=== PATIENT | male | born 1970 | race Caucasian/White ===

== ENCOUNTER 2024-10-05 05:34 | Emergency (ER) | payer OTHER ==
[~2024-10-05] VITALS: Ht 190.5 cm; Wt 100.7 kg
[~2024-10-05 05:34] MED LIST: HYDROCODON-ACE1 EA10 PO
[2024-10-05] MEDS ORDERED: IBLOOD GLUCOSE TEST STRIP 1 EA TEST XX ONE (05:45)
[2024-10-05 05:55] LABS: BASOPHILS 1.2 % (0-2); EOSINOPHILS 2.9 % (0-6); HEMATOCRIT 45.9 % (35.0-50.0); HEMOGLOBIN 16.1 g/dL (12.0-18.0); LYMPHOCYTES 28.5 % (24-44); MCH 30.6 (27-36); MCHC 35.1 g/dl (30-36); MCV 87.4 fl (81-99); NEUTROPHILS 60.4 % (39-80); PLATELET COUNT 234 K/uL (140-440); RBC 5.25 M/ul (4.3-5.7); RDW 13.2 (10.5-15.0)
[2024-10-05 06:12] LABS: ALBUMIN 3.5 g/dL (3.4-5.0); ALBUMIN/GLOBULIN RATIO 0.88 (1.1-2.4); ALKALINE PHOSPHATASE 61 U/L (46-116); ALT (SGPT) 38 U/L (14-59); ANION GAP 11.9 (7-21); AST (SGOT) 15 U/L (15-37); BILIRUBIN, TOTAL 0.5 ng/dL (0.2-1.0); CALCIUM 9.1 mg/dL (8.5-10.1); CARBON DIOXIDE 27 mmol/L (21-32); CHLORIDE 104 mmol/L (98-107); CREATININE, SERUM 1.03 mg/dL (0.70-1.30); GLOMERULAR FILTRATION RATE,EST 86 mL/min (>60); POTASSIUM 3.9 mmol/L (3.5-5.1); PROTEIN, TOTAL 7.5 g/dL (6.4-8.2); UREA NITROGEN 17 mg/dL (7-18)
[2024-10-05 06:22] LABS: PARTIAL THROMBOPLASTIN TIME 31.6 Sec (22.9-41.3)
[2024-10-05 06:35] LABS: INR 0.93 (0.80-1.30); PROTIME 12.4 Sec (11.2-14.2)
[2024-10-05] MEDS ORDERED: ACYCLOVIR800 MG PO (06:53)
[2024-10-05] MEDS ORDERED: methylPREDNISolone 4 MG HOME.PACK PO ONE (07:00)
[2024-10-05 07:10] VITALS: BP 121/84
--- NOTE | 2024-10-05 22:21 | EKG ---
[facility] [address] [facility] [place], [place] [address] Signed Normal sinus rhythm Normal ECG No previous ECGs available Confirmed by Sho Collier MD () on 10/05/2024 10:20:48 PM Electronically Signed By: SHO COLLIER MD 10/05/242220 PATIENT NAME: KEREN DEVRIES Electrocardiogram DATE OF : 66 PHYSICIAN: SHO COLLIER MD REPORT #: [id number] REPORT IS CONFIDENTIAL AND NOT TO BE RELEASED WITHOUT AUTHORIZATION
== END 2024-10-05 07:10 | disposition home or self-care (01) ==
LOC: ED 05:34
PROVIDERS: Family Medicine
DX: G51.0 Bell's palsy (principal)
CPT/HCPCS: 36415; 70450; 70496; 70498; 71045; 80053; 80307; 84484; 85025; 85610; 85730; 93005; 93010; 99284-25; Q9967